=== PATIENT | male | born 1985 | race African-American/Black ===

== ENCOUNTER 2025-01-26 00:56 | Emergency (ER) | payer OTHER ==
[~2025-01-26] VITALS: Ht 172.7 cm; Wt 72.7 kg
[2025-01-26] MEDS: LIDOCAINE 1% 10 ML VIAL SQ ONE (02:00)
[2025-01-26] MEDS: PERTUSS(ACELL),DIPH,TET/PF 0.5 ML SYRINGE [ADULT] IM. ONE (02:00)
[2025-01-26 03:27] VITALS: BP 124/68; PULSE 75; RESP 16; TEMP 97.3; O2SAT 97
== END 2025-01-26 04:08 | disposition home or self-care (01) ==
LOC: EMS 00:56
DX: S91.115A Laceration without foreign body of left lesser toe(s) without damage to nail, initial encounter (principal); F12.90 Cannabis use, unspecified, uncomplicated; W45.8XXA Other foreign body or object entering through skin, initial encounter; Y93.89 Activity, other specified; Y92.89 Other specified places as the place of occurrence of the external cause; Y99.8 Other external cause status
CPT/HCPCS: 99283; 90715; 90471; 12001; J3490